=== PATIENT | female | born 1970 | race Caucasian/White ===

== ENCOUNTER → 2016-11-02 | Outpatient (CLI) | payer BC ==
[~2016-11-02] MED LIST: ADULT LOW DOSE81 M1 PO; AMBIEN CR12.5 MG PO; AMBIEN5 MG PO; ASPIRIN325 MG PO; ASPIRIN81 M2 PO; BYSTOLIC; BYSTOLIC5 MG PO; CYMBALTA20 MG PO; DOXYCYCLINE HYC50 MG PO; DURAGESIC25 MCG TD; Ecotrin PO; FENTANYL1 EAC5 TD; FISH OIL 1,0001 EAC7 PO; FLEXERIL10 MG PO; LANSOPRAZOLE30 MG PO; LIDODERM 5% P1 PATCH TD; MIRALAX17 GM PO; MULTIVITAMIN1 EACH PO; NAPROXEN500 MG PO; NEXIUM10 MG PO; OXYCODONE-APAP1 EACH PO; PRAMOSONE 2.528.4 GM TP; PRAZOSIN HCL1 MG PO; PREDNISONE20 MG PO; PREVACID30 MG; REMERON15 MG PO; REMERON30 M2 PO; THERA TEARS30 ML BOTH EYES; VALIUM5 MG PO; ZANAFLEX4 M1 PO; ZANAFLEX4 MG PO; ZOMIG2.5 MG PO
== END | disposition home or self-care (01) ==
LOC: CDC 15:11
DX: Z01.810 Encounter for preprocedural cardiovascular examination (principal)
CPT/HCPCS: 93000

== ENCOUNTER 2017-04-17 17:35 | Emergency (ER) | payer BC ==
[~2017-04-17] VITALS: Ht 167.6 cm; Wt 62.1 kg
[2017-04-17 18:28] LABS: HEMATOCRIT 41.1 % (36.0-46.0); MCH 30.7 PG (29.0-34.0); MCHC 34.8 G/DL (30.0-36.0); MCV 88.2 FL (83-99); MEAN PLAT.VOLUME 9.6 uM^3 (9.5-12.4); PLATELET COUNT 214 K/uL (156-360); RBC DIS.WIDTH-CV 11.9 % (11.8-14.6); RBC DIS.WIDTH-SD 38.5 % (39-53); RED BLOOD COUNT 4.66 M/uL (3.80-5.20); WHITE BLOOD COUNT 14.2 K/uL (4.1-10.2)
[2017-04-17 18:43] LABS: CHLORIDE 106 mEq/L (99-109); POTASSIUM 3.6 mEq/L (3.7-5.4); SODIUM 141 mEq/L (136-147)
[2017-04-17 18:45] LABS: GLUCOSE 111 mg/dL (70-99)
[2017-04-17 18:46] LABS: ANION GAP 12 MEQ/L (2-14)
[2017-04-17 18:47] LABS: TOTAL BILIRUBIN 0.8 mg/dL (0.0-1.0)
[2017-04-17 18:49] LABS: ALKALINE PHOSPHATASE 53 IU/L (3-129); GFR ESTIMATE (CALCULATED) > 59 mL/min/
[2017-04-17 18:50] LABS: UREA NITROGEN (BUN) 15 mg/dL (9-23)
[2017-04-17 18:52] LABS: LIPASE 9 U/L (1.0-51.0)
[2017-04-17 18:58] LABS: QUANTITATIVE HCG < 4.0 MIU/ML
[2017-04-17 20:03] LABS: ADD MIUA? YES; BILIRUBIN NEGATIVE; BLOOD NEGATIVE; COLOR YELLOW ((YELLOW)); GLUCOSE (STRIP) NEGATIVE; KETONES NEGATIVE; LEUKOCYTES NEGATIVE; NITRITE NEGATIVE; PROTEIN (STRIP) NEGATIVE; SPECIFIC GRAVITY 1.015 (1.000-1.030); UROBILINOGEN 0.2 MG/DL (0.2-1.0)
[2017-04-17 20:37] LABS: AMORPHOUS PHOSPHATE CRYSTALS 3+; BACTERIA RARE /HPF; CASTS NONE SEEN /LPF; CRYSTALS PRESENT; EPITHELIAL CELLS 2+ /HPF; MUCUS NONE SEEN /LPF; RED BLOOD CELLS RARE /HPF (0-5); UCUL ADDED? NO; WHITE BLOOD CELLS RARE /HPF (0-5)
[2017-04-17] MEDS ORDERED: FLAGYL500 MG PO (22:20)
[2017-04-17] MEDS ORDERED: CIPRO500 MG PO (22:20)
[2017-04-17] MEDS ORDERED: ZOFRAN ODT4 MG PO (22:22)
[2017-04-18 00:08] VITALS: BP 134/90
== END 2017-04-18 00:39 | disposition home or self-care (01) ==
LOC: EME 17:35
PROVIDERS: Emergency Medicine
DX: K51.50 Left sided colitis without complications (principal); I10 Essential (primary) hypertension; K21.9 Gastro-esophageal reflux disease without esophagitis; M79.7 Fibromyalgia; Z86.73 Personal history of transient ischemic attack (TIA), and cerebral infarction without residual deficits; F41.9 Anxiety disorder, unspecified; F32.9 Major depressive disorder, single episode, unspecified; Z85.3 Personal history of malignant neoplasm of breast; Z90.11 Acquired absence of right breast and nipple; Z90.710 Acquired absence of both cervix and uterus
CPT/HCPCS: 74177; 80053; 81003; 83690; 84702; 85027; 99281; 99285; J0744; J1630; J2270; J2405; J7030; S0030